=== PATIENT | female | born 1985 | race American Indian/Alaskan Native ===

== ENCOUNTER 2016-12-13 23:18 | Emergency (ER) | payer MEDICAID ==
[2016-12-14 00:08] VITALS: BP 133/87
[2016-12-14] MEDS ORDERED: TYLENOL PO ONE (01:28)
== END 2016-12-14 04:30 | disposition left against medical advice (07) ==
LOC: ED 23:18
DX: R21 Rash and other nonspecific skin eruption (principal); Z53.21 Procedure and treatment not carried out due to patient leaving prior to being seen by health care provider

== ENCOUNTER 2019-08-01 07:02 | Emergency (ER) | payer OTHER, MEDICAID ==
[2019-08-01] MEDS ORDERED: KETOROLAC 30 MG/1 ML INJ IM ONE (08:20)
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
[2019-08-01 09:00] VITALS: BP 148/86
== END 2019-08-01 09:09 | disposition home or self-care (01) ==
LOC: ED 07:02
DX: S16.1XXA Strain of muscle, fascia and tendon at neck level, initial encounter (principal); S39.012A Strain of muscle, fascia and tendon of lower back, initial encounter; S80.12XA Contusion of left lower leg, initial encounter; E11.9 Type 2 diabetes mellitus without complications; K21.9 Gastro-esophageal reflux disease without esophagitis; F31.9 Bipolar disorder, unspecified; F41.9 Anxiety disorder, unspecified; J45.909 Unspecified asthma, uncomplicated; Z90.89 Acquired absence of other organs; Z91.040 Latex allergy status; Z88.2 Allergy status to sulfonamides; Z88.1 Allergy status to other antibiotic agents; V49.49XA Driver injured in collision with other motor vehicles in traffic accident, initial encounter; Y93.89 Activity, other specified; Y92.410 Unspecified street and highway as the place of occurrence of the external cause; Y99.8 Other external cause status
CPT/HCPCS: 96372; 99282; J1885